=== PATIENT | female | born 1975 | race Caucasian/White ===

== ENCOUNTER → 2018-06-22 | Outpatient (REF) | payer OTHER | LOC: M LAB REF 17:20 | DX: R30.0 Dysuria (principal) ==

== ENCOUNTER → 2023-07-28 | Outpatient (CLI) | payer OTHER | LOC: M WHC 09:11 | DX: Z12.31 Encounter for screening mammogram for malignant neoplasm of breast (principal); N64.4 Mastodynia ==

== ENCOUNTER → 2023-08-11 | Outpatient (CLI) | payer OTHER | LOC: M WHC 08:21 | DX: N64.4 Mastodynia (principal); Z12.31 Encounter for screening mammogram for malignant neoplasm of breast | CPT/HCPCS: 77065; G0279 ==

== ENCOUNTER → 2024-01-18 | Outpatient (REF) | payer OTHER | LOC: M LAB REF 20:19 | PROVIDERS: ATTEND Student in an Organized Health Care Education/Training Program | DX: R30.0 Dysuria (principal) ==

== ENCOUNTER → 2024-10-04 | Outpatient (CLI) | payer OTHER | LOC: M WHC 16:32 | PROVIDERS: ATTEND Nurse Practitioner Primary Care | DX: Z12.31 Encounter for screening mammogram for malignant neoplasm of breast (principal); R92.333 Mammographic heterogeneous density, bilateral breasts ==

== ENCOUNTER → 2025-02-21 | Outpatient (REF) | payer OTHER ==
[2025-02-21 17:43] LABS: BASO % 0.6 % (0.0-1.0); EOS # 0.1 10^3/uL (0.0-0.5); EOS % 1.4 % (0.0-3.0); HEMATOCRIT 43.2 % (36.0-47.0); HEMOGLOBIN 13.9 g/dl (12.0-15.5); LYMPH # 1.4 10^3/uL (1.5-5.0); LYMPH % 22.4 % (24.0-44.0); MEAN CORPUSCULAR HEMOGLOBIN 30.1 pg (27.0-33.0); MEAN CORPUSCULAR HGB CONC 32.2 g/dl (32.0-36.5); MEAN CORPUSCULAR VOLUME 93.5 fl (80.0-96.0); MONO # 0.5 10^3/uL (0.0-0.8); MONO % 7.1 % (2.0-8.0); NEUTROPHILS # 4.3 10^3/uL (1.5-8.5); NEUTROPHILS % 68.2 % (36.0-66.0); PLATELET COUNT, AUTOMATED 274 10^3/uL (150-450); RED BLOOD COUNT 4.62 10^6/uL (4.00-5.40); WHITE BLOOD COUNT 6.3 10^3/uL (4.0-10.0)
[2025-02-21 18:00] LABS: ERYTHROCYTE SEDIMENTATION RATE 19 mm/hr (0-20)
[2025-02-21 18:05] LABS: APPEARANCE, URINE CLEAR (CLEAR); BACTERIA, URINE AUTO NEGATIVE (NEGATIVE); BILIRUBIN, URINE AUTO NEGATIVE (NEGATIVE); BLOOD, URINE BLOOD NEGATIVE (NEGATIVE); COLOR, URINE COLORLESS (YELLOW); GLUCOSE, URINE (UA) AUTO NEGATIVE (NEGATIVE); KETONE, URINE AUTO NEGATIVE (NEGATIVE); LEUKOCYTE ESTERASE, URINE AUTO NEGATIVE (NEGATIVE); NITRITE, URINE AUTO NEGATIVE (NEGATIVE); PROTEIN, URINE AUTO NEGATIVE (NEGATIVE); RBC, URINE AUTO 1 /HPF (0-3); SPECIFIC GRAVITY URINE AUTO 1.005 (1.002-1.035); SQUAMOUS EPITHELIAL CELL UR AU 0 /HPF (0-6); UROBILINOGEN, URINE AUTO 0.2 mg/dL (0.0-2.0); WBC, URINE AUTO 0 /HPF (0-3)
[2025-02-21 18:13] LABS: C REACTIVE PROTEIN QUANTITATIV 0.56 MG/DL (<1.0)
[2025-02-21 18:14] LABS: ALKALINE PHOSPHATASE 69 U/L (35-104); ALT/SGPT 35 U/L (7.0-40); AST/SGOT 33 U/L (<34); BILIRUBIN,DIRECT 0.2 MG/DL (<0.4); BILIRUBIN,TOTAL 0.4 MG/DL (0.3-1.2); BLOOD UREA NITROGEN 21 MG/DL (9-23); CALCIUM LEVEL 9.5 MG/DL (8.5-10.1); CARBON DIOXIDE LEVEL 27 MMOL/L (20-31); CHLORIDE LEVEL 103 MMOL/L (98-107); COMPLEMENT C3 147.2 MG/DL (90.0-170.0); COMPLEMENT C4 26.4 MG/DL (12-36); GLOMERULAR FILTRATION RATE > 60.0 (>58); GLUCOSE, FASTING 74 MG/DL (60-100); POTASSIUM SERUM 3.8 MMOL/L (3.5-5.1); SODIUM LEVEL 141 MMOL/L (136-145); TOTAL 25(OH) VITAMIN D 40.9 NG/ML (20.0-100.0); TOTAL PROTEIN 7.7 G/DL (5.7-8.2)
[2025-02-21 18:16] LABS: VITAMIN B12 LEVEL 673 PG/ML (211-911)
[2025-02-21 18:39] LABS: CREATININE,RANDOM URINE 19.9 MG/DL
[2025-02-21 18:40] LABS: TOTAL PROTEIN,RANDOM URINE < 6.0 MG/DL (0.0-14.0)
== END ==
LOC: M SFHCRHEU 14:58
PROVIDERS: ATTEND Internal Medicine
DX: R76.8 Other specified abnormal immunological findings in serum (principal); Z84.0 Family history of diseases of the skin and subcutaneous tissue; M54.9 Dorsalgia, unspecified; M79.10 Myalgia, unspecified site

== ENCOUNTER → 2025-03-09 | Outpatient (CLI) | payer OTHER | LOC: M PLAIMG 08:32 | PROVIDERS: ATTEND Internal Medicine | DX: M79.641 Pain in right hand (principal); M79.642 Pain in left hand; M19.041 Primary osteoarthritis, right hand; M19.042 Primary osteoarthritis, left hand ==

== ENCOUNTER → 2025-09-13 | Outpatient (CLI) | payer OTHER | LOC: M PLAIMG 12:32 | PROVIDERS: ATTEND Internal Medicine | DX: R01.1 Cardiac murmur, unspecified (principal) ==

== ENCOUNTER → 2025-10-05 | Outpatient (CLI) | payer OTHER | LOC: M WHC 16:14 | PROVIDERS: ATTEND Student in an Organized Health Care Education/Training Program | DX: Z12.31 Encounter for screening mammogram for malignant neoplasm of breast (principal) ==